=== PATIENT | male | born 1960 | race Asian ===

== ENCOUNTER 2017-08-27 15:21 | Observation (INO) | payer OTHER ==
[2017-08-27 15:45] VITALS: BMI 39.5
--- NOTE | 2017-08-27 15:47 | PDOC ---
Rapid Medical Evaluation Chief Complaint: Blood Sugar Problem Time Seen by Provider: 08/27/17 15:43 Medical Evaluation: Allergies Allergy/AdvReac Type Severity Reaction Status Date / Time No Known Allergies Allergy Verified 08/27/17 15:41 08/27/17 15:43 Reports elevated blood sugars over the past week. Today in the 400's. Pt. also reporting R big toe pain. Admits to feeling shaky. Currently fasting for Ramadan. Exam: Ambulatory, no acute respiratory distress Labs: CBC, CMP, Uric acid, UA, UC Pt. will proceed to main ed for further evaluation.
[2017-08-27 16:51] LABS: URINE APPEARANCE CLEAR; URINE BILIRUBIN NEGATIVE (<2.0 mg/dL); URINE COLOR STRAW; URINE GLUCOSE (UA) 3+ (NEGATIVE); URINE KETONE NEGATIVE (NEGATIVE); URINE LEUK ESTERASE NEGATIVE (NEGATIVE); URINE NITRITE NEGATIVE (NEGATIVE); URINE UROBILINOGEN NEGATIVE mg/dL (0.2-1.0)
[2017-08-27 16:53] LABS: BASO % 0.8 % (0-2.0); EOS % 3.5 % (0-4.5); HEMATOCRIT 33.4 % (35.4-49); HEMOGLOBIN 10.8 GM/dL (11.7-16.9); LYMPH % 24.5 % (8-40); MCH 25.8 pg (25.7-33.7); MCHC 32.5 g/dl (32.0-35.9); MEAN CELL VOLUME 79.3 fl (80-96); MEAN PLT VOLUME 9.5 fl (7.5-11.1); NEUT % 62.2 % (42.8-82.8); PLATELET COUNT 223 K/MM3 (134-434); RBC 4.21 M/mm3 (4.00-5.60); RDW 16.5 % (11.9-15.9); WHITE BLOOD COUNT 6.7 K/mm3 (4.0-10.0)
[2017-08-27 17:06] LABS: URINE PROTEIN 2+ (NEGATIVE)
[2017-08-27 17:15] LABS: INR 0.94 (0.82-1.09); PROTHROMBIN TIME (PATIENT) 10.6 SEC (9.7-13.0)
[2017-08-27 17:24] LABS: ALBUMIN 4.1 g/dl (3.4-5.0); ANION GAP 7 (8-16); BILIRUBIN,TOTAL 0.3 mg/dL (0.2-1.0); BLOOD UREA NITROGEN 33 mg/dL (7-18); CHLORIDE 102 mmol/L (98-107); CO2 28 mmol/L (21-32); CREATININE 1.7 mg/dL (0.7-1.3); SGOT/AST 19 U/L (15-37); SGPT/ALT 24 U/L (12-78); SODIUM 137 mmol/L (136-145); TOT PROT 8.4 g/dl (6.4-8.2)
[2017-08-27 17:32] LABS: ALK PHOS 79 U/L (45-117)
[2017-08-27] MEDS ORDERED: SODIUM CHLORIDE 1,000 ML IV STA (17:37)
[2017-08-27 17:39] LABS: GLUCOSE,RANDOM 306 mg/dL (74-106)
--- NOTE | 2017-08-27 19:10 | PDOC ---
History of Present Illness - General History Source: Patient Exam Limitations: No Limitations - History of Present Illness Initial Comments: 08/27/17 20:01 The patient is a 56 year old male with a significant past medical history of diabetes, hypertension, and hyperlipidemia who presents to the emergency department for evaluation of high blood glucose levels and right toe pain. The patient reports elevated glucose levels above 300 for the passed 3 days. The patient reports he is concerned about elevated blood glucose levels since he has been fasting for Ramadan (15 hours). The patient reports moderate right toe pain with no radiation. The patient is currently taking aspirin (unsure of dosage), levemir, and metformin. Denies history of gout. The patient denies chest pain, shortness of breath, headache, and dizziness. Denies fevers, chills, nausea, vomiting, diarrhea, and constipation. Denies dysuria, frequency, urgency, and hematuria. Allergies: NKDA Medications: As per nursing notes. Past surgical history: Patient denies. Social history: No reported cigarette, alcohol, or drug use. PCP: Dr. Jatinder Arana ([place]) <April Latham - Last Filed: 08/27/17 22:05> <Claribel Wood - Last Filed: 08/27/17 23:08> - General Chief Complaint: Blood Sugar Problem Stated Complaint: BLOOD SUGAR PROBLEM Time Seen by Provider: 08/27/17 15:43 Past History <April Latham - Last Filed: 08/27/17 22:05> - Past Medical History COPD: No Diabetes: Yes HTN: Yes Hypercholesterolemia: Yes - Suicide/Smoking/Psychosocial Hx Smoking History: Never smoked Have you smoked in the past 12 months: No Information on smoking cessation initiated: No Hx Alcohol Use: No Drug/Substance Use Hx: No Substance Use Type: None Hx Substance Use Treatment: No <Claribel Wood - Last Filed: 08/27/17 23:08> - Past Medical History Allergies/Adverse Reactions: Allergies Allergy/AdvReac Type Severity Reaction Status Date / Time No Known Allergies Allergy Verified 08/27/17 15:41 Home Medications: Ambulatory Orders Aspirin [ASA -] 81 mg PO DAILY 12/06/15 Chlorthalidone 25 mg PO BID 12/06/15 Lisinopril [Prinivil -] 40 mg PO DAILY 12/06/15 Metformin HCl [Glucophage] 500 mg PO BID 12/06/15 Metoprolol Succinate [Toprol XL -] 50 mg PO DAILY 12/06/15 Nifedipine ER [Procardia Xl -] 60 mg PO DAILY 08/27/17 Rosuvastatin Calcium [Crestor] 40 mg PO DAILY 08/27/17 Review of Systems - Review of Systems Able to Perform ROS?: Yes Comments:: CONSTITUTIONAL: Absent: fever, chills, diaphoresis, generalized weakness, malaise, loss of appetite HEENT: Absent: rhinorrhea, nasal congestion, throat pain, throat swelling, difficulty swallowing, mouth swelling, ear pain, eye pain, visual Changes CARDIOVASCULAR: Absent: chest pain, syncope, palpitations, irregular heart rate, lightheadedness , peripheral edema RESPIRATORY: Absent: cough, shortness of breath, dyspnea with exertion, orthopnea, wheezing, stridor, hemoptysis GASTROINTESTINAL: Absent: abdominal pain, abdominal distension, nausea, vomiting, diarrhea, constipation, melena, hematochezia GENITOURINARY: Absent: dysuria, frequency, urgency, hesitancy, hematuria, flank pain, genital pain MUSCULOSKELETAL: (+)Right toe pain. Absent: myalgia, arthralgia, joint swelling SKIN: Absent: rash, itching, pallor HEMATOLOGIC/IMMUNOLOGIC: Absent: easy bleeding, easy bruising, lymphadenopathy, frequent infections ENDOCRINE: Absent: unexplained weight gain, unexplained weight loss, heat intolerance, cold intolerance NEUROLOGIC: Absent: headache, focal weakness or paresthesias, dizziness, unsteady gait, seizure, mental status changes, bladder or bowel incontinence PSYCHIATRIC: Absent: anxiety, depression, suicidal or homicidal ideation, hallucinations. <April Latham - Last Filed: 08/27/17 22:05> *Physical Exam - Vital Signs Last Vital Signs Temp Pulse Resp BP Pulse Ox 98.5 F 81 18 117/86 100 08/27/17 15:43 08/27/17 15:43 08/27/17 15:43 08/27/17 15:43 08/27/17 15:43 - Physical Exam Comments: GENERAL: Well developed, well nourished. Awake and alert. No acute distress. HEENT: Normocephalic, atraumatic. PERRLA, EOMI. No conjunctival pallor. Sclera are non- icteric. Moist mucous membranes. Oropharynx is clear. NECK: Supple. Full ROM. No JVD. Carotid pulses 2+ and symmetric, without bruits. No thyromegaly. No lymphadenopathy. CARDIOVASCULAR: Regular rate and rhythm. No murmurs, rubs, or gallops. Distal pulses are 2+ and symmetric. PULMONARY: No evidence of respiratory distress. Lungs clear to auscultation bilaterally. No wheezing, rales or rhonchi. ABDOMINAL: Soft. Non-tender. Non-distended. No rebound or guarding. No organomegaly. Normoactive bowel sounds. MUSCULOSKELETAL Normal range of motion at all joints. No bony deformities or tenderness. No CVA tenderness. EXTREMITIES: (+)Tender and ecchymotic first digit of right foot. No cyanosis. No clubbing. No edema. No calf tenderness. SKIN: Warm and dry. Normal capillary refill. No rashes. No jaundice. NEUROLOGICAL: Alert, awake, appropriate. Cranial nerves 2-12 intact. No deficits to light touch and temperature in face, upper extremities and lower extremities. No motor deficits in the in face, upper extremities and lower extremities. Normoreflexic in the upper and lower extremities. Normal speech. Toes are down- going bilaterally. PSYCHIATRIC: Cooperative. Good eye contact. Appropriate mood and affect. <April Latham - Last Filed: 08/27/17 22:05> - Vital Signs Last Vital Signs Temp Pulse Resp BP Pulse Ox 98.5 F 81 18 117/86 100 08/27/17 15:43 08/27/17 15:43 08/27/17 15:43 08/27/17 15:43 08/27/17 15:43 <Claribel Wood - Last Filed: 08/27/17 23:08> Moderate Sedation - Procedure Monitoring Vital Signs: Vital Signs Temp Pulse Resp BP Pulse Ox 98.5 F 81 18 117/86 100 08/27/17 15:43 08/27/17 15:43 08/27/17 15:43 08/27/17 15:43 08/27/17 15:43 <April Latham - Last Filed: 08/27/17 22:05> - Procedure Monitoring Vital Signs: Vital Signs Temp Pulse Resp BP Pulse Ox 98.5 F 81 18 117/86 100 08/27/17 15:43 08/27/17 15:43 08/27/17 15:43 08/27/17 15:43 08/27/17 15:43 <IsraelClaribel Bailey - Last Filed: 08/27/17 23:08> ED Treatment Course - LABORATORY CBC & Chemistry Diagram: 08/27/17 16:26 08/27/17 16:26 - ADDITIONAL ORDERS Additional order review: Laboratory Results 08/27/17 08/27/17 08/27/17 19:36 16:29 16:26 PT with INR INR Sodium Potassium Chloride Carbon Dioxide Anion Gap BUN Creatinine Creat Clearance w eGFR POC Glucometer [id number] Random Glucose Uric Acid 6.7 Calcium Total Bilirubin AST ALT Alkaline Phosphatase Total Protein Albumin Urine Color Urine Appearance Urine pH Ur Specific [place] Urine Protein Urine Glucose (UA) Urine Ketones Urine Blood Urine Nitrite Urine Bilirubin Urine Urobilinogen Ur Leukocyte Esterase Urine WBC (Auto) Urine RBC (Auto) Acetone, Qual Negative 08/27/17 08/27/17 08/27/17 16:26 16:26 16:26 PT with INR 10.60 INR 0.94 Sodium 137 Potassium 5.0 D Chloride 102 Carbon Dioxide 28 Anion Gap 7 L BUN 33 H D Creatinine 1.7 H D Creat Clearance w eGFR 42.05 POC Glucometer Random Glucose 306 H* D Uric Acid Calcium 9.0 Total Bilirubin 0.3 D AST 19 D ALT 24 D Alkaline Phosphatase 79 D Total Protein 8.4 H D Albumin 4.1 D Urine Color Straw Urine Appearance Clear Urine pH 6.0 Ur Specific [place] 1.016 Urine Protein 2+ H Urine Glucose (UA) 3+ H Urine Ketones Negative Urine Blood 1+ H Urine Nitrite Negative Urine Bilirubin Negative Urine Urobilinogen Negative Ur Leukocyte Esterase Negative Urine WBC (Auto) 1 Urine RBC (Auto) 3 Acetone, Qual 08/27/17 08/27/17 19:36 16:26 RBC 4.21 MCV 79.3 L MCHC 32.5 RDW 16.5 H D MPV 9.5 Neutrophils % 62.2 Lymphocytes % 24.5 Monocytes % 9.0 Eosinophils % 3.5 D Basophils % 0.8 POC Glucometer 369.07803 - Medications Given in the ED: ED Medications Discontinued Medications Generic Name Dose Route Start Last Admin Trade Name Freq PRN Reason Stop Dose Admin Sodium Chloride 1,000 mls @ 1,000 mls/hr 08/27/17 17:37 08/27/17 18:10 Normal Saline - IV 08/27/17 18:36 1,000 mls/hr ASDIR STA Administration Morphine Sulfate 2 mg 08/27/17 19:11 08/27/17 19:28 Morphine Injection - IVPUSH 08/27/17 19:12 Not Given ONCE ONE <NishalonsoApril - Last Filed: 08/27/17 22:05> - LABORATORY CBC & Chemistry Diagram: 08/27/17 16:26 08/27/17 16:26 - ADDITIONAL ORDERS Additional order review: Laboratory Results 08/27/17 08/27/17 08/27/17 16:29 16:26 16:26 PT with INR INR Sodium 137 Potassium 5.0 D Chloride 102 Carbon Dioxide 28 Anion Gap 7 L BUN 33 H D Creatinine 1.7 H D Creat Clearance w eGFR 42.05 Random Glucose 306 H* D Uric Acid 6.7 Calcium 9.0 Total Bilirubin 0.3 D AST 19 D ALT 24 D Alkaline Phosphatase 79 D Total Protein 8.4 H D Albumin 4.1 D Urine Color Urine Appearance Urine pH Ur Specific [place] Urine Protein Urine Glucose (UA) Urine Ketones Urine Blood Urine Nitrite Urine Bilirubin Urine Urobilinogen Ur Leukocyte Esterase Urine WBC (Auto) Urine RBC (Auto) Acetone, Qual Negative 08/27/17 08/27/17 16:26 16:26 PT with INR 10.60 INR 0.94 Sodium Potassium Chloride Carbon Dioxide Anion Gap BUN Creatinine Creat Clearance w eGFR Random Glucose Uric Acid Calcium Total Bilirubin AST ALT Alkaline Phosphatase Total Protein Albumin Urine Color Straw Urine Appearance Clear Urine pH 6.0 Ur Specific [place] 1.016 Urine Protein 2+ H Urine Glucose (UA) 3+ H Urine Ketones Negative Urine Blood 1+ H Urine Nitrite Negative Urine Bilirubin Negative Urine Urobilinogen Negative Ur Leukocyte Esterase Negative Urine WBC (Auto) 1 Urine RBC (Auto) 3 Acetone, Qual 08/27/17 16:26 RBC 4.21 MCV 79.3 L MCHC 32.5 RDW 16.5 H D MPV 9.5 Neutrophils % 62.2 Lymphocytes % 24.5 Monocytes % 9.0 Eosinophils % 3.5 D Basophils % 0.8 - RADIOLOGY Radiology Studies Ordered: Category Date Time Status FOOT-RIGHT [RAD] Stat Radiology 08/27/17 17:41 Taken - Medications Given in the ED: ED Medications Discontinued Medications Generic Name Dose Route Start Last Admin Trade Name Freq PRN Reason Stop Dose Admin Sodium Chloride 1,000 mls @ 1,000 mls/hr 08/27/17 17:37 08/27/17 18:10 Normal Saline - IV 08/27/17 18:36 1,000 mls/hr ASDIR STA Administration <Claribel Wood - Last Filed: 08/27/17 23:08> *DC/Admit/Observation/Transfer - Attestations Scribe Attestion: Documentation prepared by April Latham, acting as medical screener for Claribel Wood MD. <April Latham - Last Filed: 08/27/17 22:05> - Discharge Dispostion Decision to Admit order: Yes <Claribel Wood - Last Filed: 08/27/17 23:08> Diagnosis at time of Disposition: Toe infection, Insulin dependent diabetes mellitus
[2017-08-27] MEDS ORDERED: morphine CARPU-JECT 2 MG/1 ML DISP.SYRIN IVPUSH ONE (19:11)
[2017-08-27] MEDS ORDERED: PIPERACILLIN/TAZOB 3.375 GM 3.375 GM in DEXTROSE 5%-WATER - 50 ML IVPB ONE (20:18)
[2017-08-27] MEDS ORDERED: PIPERACILLIN/TAZOB 3.375 GM 3.375 GM/50 ML BAG IVPB ONE (21:22)
--- NOTE | 2017-08-27 22:54 | PN ---
Teaching Attending Note Name of Resident: Yash Wilson ATTENDING PHYSICIAN STATEMENT I saw and evaluated the patient. I reviewed the resident's note and discussed the case with the resident. I agree with the resident's findings and plan as documented. SUBJECTIVE: The patient is a 56 year old man with chief complaint of right toe pain and uncontrolled blood sugar for 3 days. He has medical history of diabetes, hypertension, and hyperlipidemia. The patient reports elevated glucose levels above 300 for the passed 3 days and that he is concerned about elevated blood glucose levels since he has been fasting for Ramadan. Denies history of gout. OBJECTIVE: Vital Signs Period Temp Pulse Resp BP Sys/Bañuelos Pulse Ox Last 24 Hr 98.5 F 81 18 117/86 100 HEENT: No Jaundice, eye redness or discharge, PERRLA, EOMI. External ears are normal and hearing is grossly intact. No nasal discharge. Neck: Supple, nontender. No palpable adenopathy or thyromegaly. No JVD Chest: Good effort. Clear to auscultation and percussion. Heart: Regular. No S3, rub or murmur Abdomen: Not distended, soft, nontender and no HSM. No rebound or guarding. Normoactive bowel sounds. Ext: Peripheral pulses intact. Tender right big toe with discoloration. No pitting leg edema. Skin: Warm and dry. No petechiae, rash or ecchymosis. Neuro: Alert. Oriented x3. CN 2-12 grossly intact. Sensation grossly intact in all four extremities and DTR are symmetric. Home Medications Medication Instructions Recorded Aspirin [ASA -] 81 mg PO DAILY 12/06/15 Chlorthalidone 25 mg PO BID 12/06/15 Lisinopril [Prinivil -] 40 mg PO DAILY 12/06/15 Metformin HCl [Glucophage] 500 mg PO BID 12/06/15 Metoprolol Succinate [Toprol XL -] 50 mg PO DAILY 12/06/15 Nifedipine ER [Procardia Xl -] 60 mg PO DAILY 08/27/17 Rosuvastatin Calcium [Crestor] 40 mg PO DAILY 08/27/17 Laboratory Results - last 24 hr 08/27/17 08/27/17 08/27/17 16:26 16:26 16:26 WBC 6.7 RBC 4.21 Hgb 10.8 L Hct 33.4 L MCV 79.3 L MCH 25.8 MCHC 32.5 RDW 16.5 H D Plt Count 223 D MPV 9.5 Neutrophils % 62.2 Lymphocytes % 24.5 Monocytes % 9.0 Eosinophils % 3.5 D Basophils % 0.8 Nucleated RBC % 0 PT with INR 10.60 INR 0.94 Sodium Potassium Chloride Carbon Dioxide Anion Gap BUN Creatinine Creat Clearance w eGFR POC Glucometer Random Glucose Uric Acid Calcium Total Bilirubin AST ALT Alkaline Phosphatase Total Protein Albumin Urine Color Straw Urine Appearance Clear Urine pH 6.0 Ur Specific [place] 1.016 Urine Protein 2+ H Urine Glucose (UA) 3+ H Urine Ketones Negative Urine Blood 1+ H Urine Nitrite Negative Urine Bilirubin Negative Urine Urobilinogen Negative Ur Leukocyte Esterase Negative Urine WBC (Auto) 1 Urine RBC (Auto) 3 Acetone, Qual 08/27/17 08/27/17 08/27/17 16:26 16:26 16:29 WBC RBC Hgb Hct MCV MCH MCHC RDW Plt Count MPV Neutrophils % Lymphocytes % Monocytes % Eosinophils % Basophils % Nucleated RBC % PT with INR INR Sodium 137 Potassium 5.0 D Chloride 102 Carbon Dioxide 28 Anion Gap 7 L BUN 33 H D Creatinine 1.7 H D Creat Clearance w eGFR 42.05 POC Glucometer Random Glucose 306 H* D Uric Acid 6.7 Calcium 9.0 Total Bilirubin 0.3 D AST 19 D ALT 24 D Alkaline Phosphatase 79 D Total Protein 8.4 H D Albumin 4.1 D Urine Color Urine Appearance Urine pH Ur Specific [place] Urine Protein Urine Glucose (UA) Urine Ketones Urine Blood Urine Nitrite Urine Bilirubin Urine Urobilinogen Ur Leukocyte Esterase Urine WBC (Auto) Urine RBC (Auto) Acetone, Qual Negative 08/27/17 19:36 WBC RBC Hgb Hct MCV MCH MCHC RDW Plt Count MPV Neutrophils % Lymphocytes % Monocytes % Eosinophils % Basophils % Nucleated RBC % PT with INR INR Sodium Potassium Chloride Carbon Dioxide Anion Gap BUN Creatinine Creat Clearance w eGFR POC Glucometer [id number] Random Glucose Uric Acid Calcium Total Bilirubin AST ALT Alkaline Phosphatase Total Protein Albumin Urine Color Urine Appearance Urine pH Ur Specific [place] Urine Protein Urine Glucose (UA) Urine Ketones Urine Blood Urine Nitrite Urine Bilirubin Urine Urobilinogen Ur Leukocyte Esterase Urine WBC (Auto) Urine RBC (Auto) Acetone, Qual ASSESSMENT AND PLAN: 1. Right bigt toe cellulitis? - Patient is being admitted as an observation case for possible right big toe cellulitis. Because of her hisotry of diabetes, will get an MRI to rule out osteomyelitis/abscess and continue IV Zosyn and PO doxycycline pending further workup. 2. Other comorbid issues including SHAWN, low MCV anemia, microscopic hematuria, and poorly controlled DM are being addressed. Will give IV NS, workup anemia, refer for outpatient colonoscopy, do sliding scale insulin, hold metformin and repeat urinalysis. Toe infection may be contributing to hyperglycemia. 3. DVT prophylaxis - Heparin 5000u sq tid 4. Advance directives - Full code
--- NOTE | 2017-08-27 23:01 | HP ---
CHIEF COMPLAINT: hyperglycemia and R toe pain PCP: in [place] HISTORY OF PRESENT ILLNESS: 56 year old male with a hx of IDDM, HTN, HLD, (CKD?) presents to the hospital for R great toe pain and an elevated blood glucose. He states that for the past several days, his glucose was greater than 300, which surprised him because he is fasting for Ramadan and has been fasting for 18 hours already. Additionally, he reports that his R great toe is swollen and very tender to palpation. He denies history of gout. Denies any trauma to the toe. Denies chest pain, shortness of breath, fevers, chills, nausea, vomiting, diarrhea. Patient has never had a colonoscopy. ER course was notable for: (1) Glu 306, repeat fingerstick 396 (2) Cre 1.7 (3) WBC 6.7 PAST MEDICAL HISTORY: as stated above PAST SURGICAL HISTORY: none Social History: Smoking: none Alcohol: none Drugs: none Allergies No Known Allergies Allergy (Verified 08/27/17 15:41) HOME MEDICATIONS: Home Medications Medication Instructions Recorded Aspirin [ASA -] 81 mg PO DAILY 12/06/15 Chlorthalidone 25 mg PO BID 12/06/15 Lisinopril [Prinivil -] 40 mg PO DAILY 12/06/15 Metformin HCl [Glucophage] 500 mg PO BID 12/06/15 Metoprolol Succinate [Toprol XL -] 50 mg PO DAILY 12/06/15 Nifedipine ER [Procardia Xl -] 60 mg PO DAILY 08/27/17 Rosuvastatin Calcium [Crestor] 40 mg PO DAILY 08/27/17 REVIEW OF SYSTEMS CONSTITUTIONAL: Absent: fever, chills, diaphoresis, generalized weakness, malaise, loss of appetite, weight change HEENT: Absent: rhinorrhea, nasal congestion, throat pain, throat swelling, difficulty swallowing, mouth swelling, ear pain, eye pain, visual changes CARDIOVASCULAR: Absent: chest pain, syncope, palpitations, irregular heart rate, lightheadedness , peripheral edema RESPIRATORY: Absent: cough, shortness of breath, dyspnea with exertion, orthopnea, wheezing, stridor, hemoptysis GASTROINTESTINAL: Absent: abdominal pain, abdominal distension, nausea, vomiting, diarrhea, constipation, melena, hematochezia GENITOURINARY: Absent: dysuria, frequency, urgency, hesitancy, hematuria, flank pain, genital pain MUSCULOSKELETAL: Joint swelling in R great toe Absent: myalgia, arthralgia, joint swelling, back pain, neck pain SKIN: Absent: rash, itching, pallor HEMATOLOGIC/IMMUNOLOGIC: Absent: easy bleeding, easy bruising, lymphadenopathy, frequent infections ENDOCRINE: Absent: unexplained weight gain, unexplained weight loss, heat intolerance, cold intolerance NEUROLOGIC: Absent: headache, focal weakness or paresthesias, dizziness, unsteady gait, seizure, mental status changes, bladder or bowel incontinence PSYCHIATRIC: Absent: anxiety, depression, suicidal or homicidal ideation, hallucinations. PHYSICAL EXAMINATION Vital Signs - 24 hr 08/27/17 15:43 Temperature 98.5 F Pulse Rate 81 Respiratory 18 Rate Blood Pressure 117/86 O2 Sat by Pulse 100 Oximetry (%) GENERAL: A&Ox3, no acute distress EYES: PERRLA, EOMI ENT: Moist mucus membranes NECK: No JVD LUNGS: CTA, no wheezes HEART: RRR, no murmurs ABDOMEN: Obese, Soft, nontender, BS present MUSCULOSKELETAL: No CVA Tenderness EXTREMITIES: 2+ pulses, no edema. R great toe appears ecchymotic proximal to the toenail, tender to palpation, no purulent drainage NEUROLOGICAL: Cranial nerves II-XII intact. Laboratory Results - last 24 hr 08/27/17 08/27/17 08/27/17 16:26 16:26 16:26 WBC 6.7 RBC 4.21 Hgb 10.8 L Hct 33.4 L MCV 79.3 L MCH 25.8 MCHC 32.5 RDW 16.5 H D Plt Count 223 D MPV 9.5 Neutrophils % 62.2 Lymphocytes % 24.5 Monocytes % 9.0 Eosinophils % 3.5 D Basophils % 0.8 Nucleated RBC % 0 PT with INR 10.60 INR 0.94 Sodium Potassium Chloride Carbon Dioxide Anion Gap BUN Creatinine Creat Clearance w eGFR POC Glucometer Random Glucose Uric Acid Calcium Total Bilirubin AST ALT Alkaline Phosphatase Total Protein Albumin Urine Color Straw Urine Appearance Clear Urine pH 6.0 Ur Specific [place] 1.016 Urine Protein 2+ H Urine Glucose (UA) 3+ H Urine Ketones Negative Urine Blood 1+ H Urine Nitrite Negative Urine Bilirubin Negative Urine Urobilinogen Negative Ur Leukocyte Esterase Negative Urine WBC (Auto) 1 Urine RBC (Auto) 3 Acetone, Qual 05/22/18 05/22/18 05/22/18 16:26 16:26 16:29 WBC RBC Hgb Hct MCV MCH MCHC RDW Plt Count MPV Neutrophils % Lymphocytes % Monocytes % Eosinophils % Basophils % Nucleated RBC % PT with INR INR Sodium 137 Potassium 5.0 D Chloride 102 Carbon Dioxide 28 Anion Gap 7 L BUN 33 H D Creatinine 1.7 H D Creat Clearance w eGFR 42.05 POC Glucometer Random Glucose 306 H* D Uric Acid 6.7 Calcium 9.0 Total Bilirubin 0.3 D AST 19 D ALT 24 D Alkaline Phosphatase 79 D Total Protein 8.4 H D Albumin 4.1 D Urine Color Urine Appearance Urine pH Ur Specific [place] Urine Protein Urine Glucose (UA) Urine Ketones Urine Blood Urine Nitrite Urine Bilirubin Urine Urobilinogen Ur Leukocyte Esterase Urine WBC (Auto) Urine RBC (Auto) Acetone, Qual Negative 08/27/17 19:36 WBC RBC Hgb Hct MCV MCH MCHC RDW Plt Count MPV Neutrophils % Lymphocytes % Monocytes % Eosinophils % Basophils % Nucleated RBC % PT with INR INR Sodium Potassium Chloride Carbon Dioxide Anion Gap BUN Creatinine Creat Clearance w eGFR POC Glucometer [phone] Random Glucose Uric Acid Calcium Total Bilirubin AST ALT Alkaline Phosphatase Total Protein Albumin Urine Color Urine Appearance Urine pH Ur Specific [place] Urine Protein Urine Glucose (UA) Urine Ketones Urine Blood Urine Nitrite Urine Bilirubin Urine Urobilinogen Ur Leukocyte Esterase Urine WBC (Auto) Urine RBC (Auto) Acetone, Qual Current Medications ASSESSMENT/PLAN: 56 year old male with a hx of IDDM, HTN, HLD, (CKD?) presents to the hospital for R great toe pain and hyperglycemia #R Toe Pain: possibly paronychia vs acute gouty attack, less likely gout. -IV zosyn given in ED, will continue zosyn and add doxycycline -X ray toe negative -get MRI of toe on R -ID consult Dr. Del Angel appreciated -keep off R toe -hold NSAIDs due to kidney injury #Hyperglycemia: glucose 306 -BGMs ACHS -ISS -start on basal insulin in AM #SHAWN/CKD: unclear if patient has a baseline CKD -urine lytes -fluid hydration -repeat BMP in AM -hold lisinopril, chlorthalidone -do not give NSAIDs or nephrotoxic medications #Chronic Anemia: patients Hgb 10.8 today -iron studies -FOBT -will require colonoscopy as an outpatient #Hypertension: BP is stable currently -continue toprol XL 5025 QD -continue nifedipine 60 QD #Hyperlipidemia -continue rosuvastatin 40 QD -continue aspirin 81 QD #FEN IVF with NS @ 100cc/hr replete lytes as necessary in AM Diabetic diet in AM #Prophylaxis -early ambulation #Disposition -obs med surg Visit type - Emergency Visit Emergency Visit: Yes ED Registration Date: 08/27/17 Care time: The patient presented to the Emergency Department on the above date and was hospitalized for further evaluation of their emergent condition. - New Patient This patient is new to me today: Yes Date on this admission: 08/28/17 - Critical Care Critical Care patient: No Hospitalist Screening - Colonoscopy Questionnaire Colonoscopy Questionnaire: Colonoscopy Questionnaire - Patient: 50 - 75 years old and never had a screening colonoscopy: Unknown History of colon or rectal polyps, or CA: Unknown History of IBD, Crohn's disease or UC: Unknown History of abdominal radiation therapy as a child: Unknown - Relative: 1 with colon or rectal CA, or polyps at age 60 or younger: Unknown Colon or rectal CA diagnosed at age 45 or younger: Unknown Multiple relatives with colon or rectal CA: Unknown - Outcome: Screening Result: Negative Screen
[2017-08-28] MEDS ORDERED: PIPERACILLIN/TAZOB 3.375 GM 3.375 GM in DEXTROSE 5%-WATER - 50 ML IVPB SCH (02:00)
[2017-08-28] MEDS: SODIUM CHLORIDE 1,000 ML IV SCH ×3 (02:34→23:00)
[2017-08-28] MEDS: INSULIN SLIDING SCALE (NOVOLOG) 1 VIAL SQ SCH ×4 (07:05→22:25)
[2017-08-28] MEDS ORDERED: LEVOTHYROXINE NA 25 MCG TABLET (FP) ONE (08:01)
--- NOTE | 2017-08-28 08:16 | CONSULT ---
Consultation: REQUESTING PROVIDER: CONSULT REQUEST: We have been asked to medically evaluate this patient for possible Right great toe infection. HISTORY OF PRESENT ILLNESS: 56M with PMH of DM, htn, hld, presents to hospital with Right great toe pain and persistent hyperglycemia. Pt endorses blood glucose consistently >300 x 3 days, despite fasting for Ramada. Right great toe pain also coincides with initiation of fasting (18 hours daily of no food or water). Pain is improved this morning as compared to at presentation to hospital. Pt denies trauma to toe. Pt denies hx of gout. Pt reports chronic diminished sensation to vijay great toes. Pt denies abdominal pain, nausea, vomiting, headache, chest pain, sob, fever, chills, sick contacts, recent illness. REVIEW OF SYSTEMS: CONSTITUTIONAL: Absent: fever, chills, diaphoresis HEENT: Absent: rhinorrhea, nasal congestion, ear pain, eye pain, visual changes CARDIOVASCULAR: Absent: chest pain, palpitations, irregular heart rate, peripheral edema RESPIRATORY: Absent: cough, shortness of breath, wheezing, stridor, hemoptysis GASTROINTESTINAL: Absent: abdominal pain, abdominal distension, nausea, vomiting, diarrhea, constipation, melena, hematochezia GENITOURINARY: Absent: dysuria, frequency, hematuria MUSCULOSKELETAL: Right great toe pain Absent: myalgia, joint swelling, back pain, neck pain SKIN: Absent: rash, itching, pallor HEMATOLOGIC/IMMUNOLOGIC: Absent: easy bleeding, easy bruising, lymphadenopathy, frequent infections ENDOCRINE: Absent: unexplained weight gain, unexplained weight loss, heat intolerance, cold intolerance NEUROLOGIC: Absent: headache, focal weakness or paresthesias PSYCHIATRIC: Absent: anxiety, depression PHYSICAL EXAMINATION Vital Signs - 24 hr 08/27/17 15:43 Temperature 98.5 F Pulse Rate 81 Respiratory 18 Rate Blood Pressure 117/86 O2 Sat by Pulse 100 Oximetry (%) GENERAL: Awake, alert, and fully oriented, in no acute distress. LUNGS: Breath sounds equal, clear to auscultation bilaterally. No wheezes, and no crackles. No accessory muscle use. HEART: Regular rate and rhythm, normal S1 and S2 without murmur, rub or gallop. ABDOMEN: Soft, nontender, not distended, no guarding. LOWER EXTREMITIES: Right great toe swollen, erythematous, tender to palpation. Onychomycosis to Right great toe only. No skin opening/breakdown. Diminished sensation to vijay great toes. Warm, well-perfused. No calf tenderness. No peripheral edema. PSYCHIATRIC: Cooperative. Good eye contact. Appropriate mood and affect. Laboratory Results - last 24 hr 08/27/17 08/27/17 08/27/17 16:26 16:26 16:26 WBC 6.7 RBC 4.21 Hgb 10.8 L Hct 33.4 L MCV 79.3 L MCH 25.8 MCHC 32.5 RDW 16.5 H D Plt Count 223 D MPV 9.5 Neutrophils % 62.2 Lymphocytes % 24.5 Monocytes % 9.0 Eosinophils % 3.5 D Basophils % 0.8 Nucleated RBC % 0 PT with INR 10.60 INR 0.94 Sodium Potassium Chloride Carbon Dioxide Anion Gap BUN Creatinine Creat Clearance w eGFR POC Glucometer Random Glucose Uric Acid Calcium Total Bilirubin AST ALT Alkaline Phosphatase Total Protein Albumin Urine Color Straw Urine Appearance Clear Urine pH 6.0 Ur Specific [place] 1.016 Urine Protein 2+ H Urine Glucose (UA) 3+ H Urine Ketones Negative Urine Blood 1+ H Urine Nitrite Negative Urine Bilirubin Negative Urine Urobilinogen Negative Ur Leukocyte Esterase Negative Urine WBC (Auto) 1 Urine RBC (Auto) 3 Acetone, Qual 08/27/17 08/27/17 08/27/17 16:26 16:26 16:29 WBC RBC Hgb Hct MCV MCH MCHC RDW Plt Count MPV Neutrophils % Lymphocytes % Monocytes % Eosinophils % Basophils % Nucleated RBC % PT with INR INR Sodium 137 Potassium 5.0 D Chloride 102 Carbon Dioxide 28 Anion Gap 7 L BUN 33 H D Creatinine 1.7 H D Creat Clearance w eGFR 42.05 POC Glucometer Random Glucose 306 H* D Uric Acid 6.7 Calcium 9.0 Total Bilirubin 0.3 D AST 19 D ALT 24 D Alkaline Phosphatase 79 D Total Protein 8.4 H D Albumin 4.1 D Urine Color Urine Appearance Urine pH Ur Specific [place] Urine Protein Urine Glucose (UA) Urine Ketones Urine Blood Urine Nitrite Urine Bilirubin Urine Urobilinogen Ur Leukocyte Esterase Urine WBC (Auto) Urine RBC (Auto) Acetone, Qual Negative 08/27/17 19:36 WBC RBC Hgb Hct MCV MCH MCHC RDW Plt Count MPV Neutrophils % Lymphocytes % Monocytes % Eosinophils % Basophils % Nucleated RBC % PT with INR INR Sodium Potassium Chloride Carbon Dioxide Anion Gap BUN Creatinine Creat Clearance w eGFR POC Glucometer [phone] Random Glucose Uric Acid Calcium Total Bilirubin AST ALT Alkaline Phosphatase Total Protein Albumin Urine Color Urine Appearance Urine pH Ur Specific [place] Urine Protein Urine Glucose (UA) Urine Ketones Urine Blood Urine Nitrite Urine Bilirubin Urine Urobilinogen Ur Leukocyte Esterase Urine WBC (Auto) Urine RBC (Auto) Acetone, Qual Active Medications Generic Name Dose Route Start Last Admin Trade Name Freq PRN Reason Stop Dose Admin Aspirin 81 mg 08/28/17 10:00 Asa - PO DAILY ADELAIDA Sodium Chloride 1,000 mls @ 100 mls/hr 08/27/17 23:00 08/28/17 02:34 Normal Saline - IV 100 mls/hr ASDIR ADELAIDA Administration Piperacillin Sod/Tazobactam 50 mls @ 100 mls/hr 08/28/17 02:00 08/28/17 02:37 Sod 3.375 gm/ Dextrose IVPB Not Given Q8H-IV ADELAIDA Protocol Doxycycline Hyclate 100 mg/ 100 mls @ 100 mls/hr 08/28/17 10:00 Dextrose IVPB BID ADELAIDA Insulin Aspart 0 vial 08/28/17 07:00 Novolog Vial Sliding Scale - SQ ACHS ADELAIDA Protocol Metoprolol Succinate 50 mg 08/28/17 10:00 Toprol Xl - PO DAILY ADELAIDA Nifedipine 60 mg 08/28/17 10:00 Procardia Xl - PO DAILY ADELAIDA Rosuvastatin Calcium 40 mg 08/28/17 22:00 Crestor - PO HS ADELAIDA ASSESSMENT/PLAN: 56M with PMH of DM, htn, hld, presents to hospital with Right great toe pain and persistent hyperglycemia. # Right great toe cellulitis - likely 2/2 OM vs gout - Though pt denies hx of gout and uric acid level wnl, symptoms onset coincide with initiation of fasting (food and water for 18 hrs daily) and pt takes home medication of Chlorthalidone - all predisposing factors for acute gout. Location of mono-articular pain also consistent with gout. - Right foot xray -> no acute fracture. Arthritic changes noted. - MRI ordered to r/o OM - f/u ESR, CRP - pt afebrile, no leukocytosis - Zosyn given in ER - start IV Ceftriaxone # DM / hyperglycemia - BGMs, Novolog SSI, diabetic diet, managed by primary team - f/u urine culture Plan discussed with Dr. Childers. Dispo: We will continue to follow the patient. Thank you for this consultative opportunity. Visit type - Emergency Visit Emergency Visit: Yes ED Registration Date: 08/27/17 Care time: The patient presented to the Emergency Department on the above date and was hospitalized for further evaluation of their emergent condition. - New Patient This patient is new to me today: Yes Date on this admission: 08/28/17 - Critical Care Critical Care patient: No
[2017-08-28] MEDS ORDERED: INSULIN (NOVOLOG) ASPART 100 UNITS/ML 10ML VIAL ONE (08:27)
[2017-08-28 08:44] LABS: HEMATOCRIT 30.7 % (35.4-49); MCHC 32.5 g/dl (32.0-35.9); MEAN PLT VOLUME 9.5 fl (7.5-11.1); PLATELET COUNT 206 K/MM3 (134-434); RBC 3.84 M/mm3 (4.00-5.60); RDW 16.1 % (11.9-15.9); WHITE BLOOD COUNT 5.9 K/mm3 (4.0-10.0)
[2017-08-28 09:08] LABS: CHLORIDE 107 mmol/L (98-107); POTASSIUM 4.5 mmol/L (3.5-5.1); SODIUM 140 mmol/L (136-145)
[2017-08-28 09:19] LABS: ANION GAP 7 (8-16); BLOOD UREA NITROGEN 29 mg/dL (7-18); CALCIUM 8.4 mg/dL (8.5-10.1); CO2 26 mmol/L (21-32); CREATININE 1.5 mg/dL (0.7-1.3); GLUCOSE,RANDOM 285 mg/dL (74-106); MAGNESIUM 2.6 mg/dL (1.8-2.4); PHOSPHOROUS 4.2 mg/dL (2.5-4.9); URIC ACID 6.2 mg/dL (2.6-7.2)
--- NOTE | 2017-08-28 09:44 | PN ---
Teaching Attending Note Name of Resident: Nikki Laureano ATTENDING PHYSICIAN STATEMENT I saw and evaluated the patient. I reviewed the resident's note and discussed the case with the resident. I agree with the resident's findings and plan as documented. SUBJECTIVE: awake and alert noted toe pain since the weekend also sugars are up he is fasting 9no water either) daily now also on a thiazide diuretic no fevers no prior history or gout no trauma +diabetes OBJECTIVE: Vital Signs Period Temp Pulse Resp BP Sys/Bañuelos Pulse Ox Last 24 Hr 97.9 F-98.5 F 65-81 16-18 117-147/75-88 96-100 cor-rrr lungs clear abd soft,protuberant, NT ext right great toe tender to touch, no ulcers minimal swelling CBC, BMP 08/28/17 08:15 08/28/17 08:15 esr 38, crp less then .3 ASSESSMENT AND PLAN: big toe swelling and pain ?gout- risk factors of dehydration (fasting and thiazide diuretic) ?cellulitis doubt osteo rocephin f/u MRI Problem List - Problems (1) Cellulitis Code(s): L03.90 - CELLULITIS, UNSPECIFIED (2) Osteomyelitis Code(s): M86.9 - OSTEOMYELITIS, UNSPECIFIED (3) Insulin dependent diabetes mellitus Code(s): E11.9 - TYPE 2 DIABETES MELLITUS WITHOUT COMPLICATIONS; Z79.4 - [facility] (CURRENT) USE OF INSULIN
[2017-08-28] MEDS ORDERED: CEFTRIAXONE 2 GM in DEXTROSE 5%-WATER 100 ML IVPB SCH (10:00)
[2017-08-28] MEDS ORDERED: DOXYCYCLINE INJECTION 100 MG in DEXTROSE 5%-WATER - 100 ML IVPB SCH (10:00)
[2017-08-28] MEDS: ASPIRIN 81 MG CHEWABLE TABLETS PO SCH (10:04)
[2017-08-28] MEDS: NIFEdipine E.R 60 MG TABLET (UD) PO SCH (10:04)
[2017-08-28] MEDS ORDERED: CEFTRIAXONE 2 GM/100 ML BAG IVPB ONE (10:36)
[2017-08-28] MEDS ORDERED: INSULIN REGULAR HUMAN 100 UNITS/ML *VIAL ONE (10:49)
[2017-08-28] MEDS: INSULIN (LEVEMIR) 100 UNITS/ML UNITS SQ SCH ×2 (11:30→22:24)
--- NOTE | 2017-08-28 12:27 | CONSULT ---
Consult - text type - Consultation Consultation Note: Podiatry Consultation: 56 year old DM M presented to ED For persistent hyperglycemia despite fasting for Ramadan. Does have tenderness/redness to the right great toe of about 2-3 days duration. Denies trauma to the toe, although he did cut his toe nails recently. Denies F/V/N/C/SOB/CP. AFebrile, VSS. PMHx: DM, HTN, HLP Meds: noted ALL: NKMA CAMELIA: R foot: pedal pulses palpable, TG wnl, CFT brisk to all toes. There is fixed erythema to the medial aspect of the hallux. THere is no ecchymosis, no ascending cellulitis, no purulence, no fluctuance, no soft tissue crepitus, no signs of acute infection. There is moderate tenderness on palpation and ROM of hallux. WBC: 5.9 ESR: 38 R foot XR: exostosis medial hallux, joint space narrowing, ?punched out erosion lateral aspect of the distal phalanx base. No fracture noted. No osteomyelitis changes. Imp: 56 year old DM M with cellulitis R great toe vs. injury vs. gouty arthropathy 1. Abx 2. Spur on great toe as well as joint space narrowing could suggest an arthritic process vs. gouty process. Can try colchicine to see if pain improves. Do not believe there is an acute bony issue as patient denies trauma. ?OM, can order advanced imaging, however low index of suspicion given ESR is not significantly elevated and there is no presence of ulcer. 3. Tight glycemic control 4. Thank you for the courtesy of this consultation. Ivan Franklin DPM
[2017-08-28] MEDS ORDERED: INSULIN (LEVEMIR) 100 UNITS/ML UNITS SQ ONE (13:05)
--- NOTE | 2017-08-28 15:22 | PN ---
Physical Exam: SUBJECTIVE: Patient seen and examined at bedside. Pt feels generally well apart from his toe, which is still painful, but improving. Pt is also concerned about his blood glucose numbers. No other complaints. OBJECTIVE: Vital Signs Period Temp Pulse Resp BP Sys/Bañuelos Pulse Ox Last 24 Hr 97.9 F-98.5 F 65-81 16-18 117-147/75-88 96-100 GENERAL: The patient is awake, alert, and fully oriented, in no acute distress. HEAD: Normal with no signs of trauma. EYES: sclera anicteric, conjunctiva clear. No ptosis. ENT: oropharynx clear without exudates, moist mucous membranes. NECK: Trachea midline, full range of motion, supple. LUNGS: Breath sounds equal, clear to auscultation bilaterally, no wheezes, no crackles, no accessory muscle use. HEART: Regular rate and rhythm, S1, S2 without murmur, rub or gallop. ABDOMEN: Soft, nontender, nondistended, normoactive bowel sounds, no guarding, no rebound, no hepatosplenomegaly, no masses. EXTREMITIES: R great to inflamed compared to left. Erythematous, slightly swollen. Tender to palpation on medial aspect. Active and passive ROM preserved. 2+ pulses, warm, well-perfused NEUROLOGICAL: Cranial nerves II through XII grossly intact. Normal speech, gait not observed. PSYCH: Normal mood, normal affect. SKIN: Warm, dry, normal turgor, no rashes or lesions noted Laboratory Results - last 24 hr 08/27/17 08/27/17 08/27/17 16:26 16:26 16:26 WBC 6.7 RBC 4.21 Hgb 10.8 L Hct 33.4 L MCV 79.3 L MCH 25.8 MCHC 32.5 RDW 16.5 H D Plt Count 223 D MPV 9.5 Neutrophils % 62.2 Lymphocytes % 24.5 Monocytes % 9.0 Eosinophils % 3.5 D Basophils % 0.8 Nucleated RBC % 0 ESR PT with INR 10.60 INR 0.94 Sodium Potassium Chloride Carbon Dioxide Anion Gap BUN Creatinine Creat Clearance w eGFR POC Glucometer Random Glucose Hemoglobin A1c % Uric Acid Calcium Phosphorus Magnesium Total Bilirubin AST ALT Alkaline Phosphatase C-Reactive Protein Total Protein Albumin Urine Color Straw Urine Appearance Clear Urine pH 6.0 Ur Specific [place] 1.016 Urine Protein 2+ H Urine Glucose (UA) 3+ H Urine Ketones Negative Urine Blood 1+ H Urine Nitrite Negative Urine Bilirubin Negative Urine Urobilinogen Negative Ur Leukocyte Esterase Negative Urine WBC (Auto) 1 Urine RBC (Auto) 3 Acetone, Qual 08/27/17 08/27/17 08/27/17 16:26 16:26 16:29 WBC RBC Hgb Hct MCV MCH MCHC RDW Plt Count MPV Neutrophils % Lymphocytes % Monocytes % Eosinophils % Basophils % Nucleated RBC % ESR PT with INR INR Sodium 137 Potassium 5.0 D Chloride 102 Carbon Dioxide 28 Anion Gap 7 L BUN 33 H D Creatinine 1.7 H D Creat Clearance w eGFR 42.05 POC Glucometer Random Glucose 306 H* D Hemoglobin A1c % Uric Acid 6.7 Calcium 9.0 Phosphorus Magnesium Total Bilirubin 0.3 D AST 19 D ALT 24 D Alkaline Phosphatase 79 D C-Reactive Protein Total Protein 8.4 H D Albumin 4.1 D Urine Color Urine Appearance Urine pH Ur Specific [place] Urine Protein Urine Glucose (UA) Urine Ketones Urine Blood Urine Nitrite Urine Bilirubin Urine Urobilinogen Ur Leukocyte Esterase Urine WBC (Auto) Urine RBC (Auto) Acetone, Qual Negative 08/27/17 08/28/17 08/28/17 19:36 08:08 08:15 WBC 5.9 RBC 3.84 L Hgb 10.0 L Hct 30.7 L MCV 80.0 MCH 26.0 MCHC 32.5 RDW 16.1 H Plt Count 206 MPV 9.5 Neutrophils % Lymphocytes % Monocytes % Eosinophils % Basophils % Nucleated RBC % ESR PT with INR INR Sodium Potassium Chloride Carbon Dioxide Anion Gap BUN Creatinine Creat Clearance w eGFR POC Glucometer [phone] Random Glucose Hemoglobin A1c % Uric Acid Calcium Phosphorus Magnesium Total Bilirubin AST ALT Alkaline Phosphatase C-Reactive Protein Total Protein Albumin Urine Color Urine Appearance Urine pH Ur Specific [place] Urine Protein Urine Glucose (UA) Urine Ketones Urine Blood Urine Nitrite Urine Bilirubin Urine Urobilinogen Ur Leukocyte Esterase Urine WBC (Auto) Urine RBC (Auto) Acetone, Qual 08/28/17 08/28/17 08/28/17 08:15 08:15 08:15 WBC RBC Hgb Hct MCV MCH MCHC RDW Plt Count MPV Neutrophils % Lymphocytes % Monocytes % Eosinophils % Basophils % Nucleated RBC % ESR 38 H PT with INR INR Sodium 140 Potassium 4.5 Chloride 107 Carbon Dioxide 26 Anion Gap 7 L BUN 29 H Creatinine 1.5 H Creat Clearance w eGFR POC Glucometer Random Glucose 285 H Hemoglobin A1c % 10.5 H D Uric Acid 6.2 Calcium 8.4 L Phosphorus 4.2 D Magnesium 2.6 H D Total Bilirubin AST ALT Alkaline Phosphatase C-Reactive Protein < 0.3 Total Protein Albumin Urine Color Urine Appearance Urine pH Ur Specific [place] Urine Protein Urine Glucose (UA) Urine Ketones Urine Blood Urine Nitrite Urine Bilirubin Urine Urobilinogen Ur Leukocyte Esterase Urine WBC (Auto) Urine RBC (Auto) Acetone, Qual Active Medications Generic Name Dose Route Start Last Admin Trade Name Connorq PRN Reason Stop Dose Admin Aspirin 81 mg 08/28/17 10:00 08/28/17 10:04 Asa - PO 81 mg DAILY ADELAIDA Administration Sodium Chloride 1,000 mls @ 100 mls/hr 08/27/17 23:00 08/28/17 02:34 Normal Saline - IV 100 mls/hr ASDIR ADELAIDA Administration Ceftriaxone Sodium 2 gm/ 100 mls @ 200 mls/hr 08/28/17 10:00 08/28/17 10:00 Dextrose IVPB 200 mls/hr DAILY ADELAIDA Administration Insulin Aspart 0 vial 08/28/17 07:00 08/28/17 10:46 Novolog Vial Sliding Scale - SQ 10 units ACHS ADELAIDA Administration Protocol Insulin Detemir 30 units 08/28/17 11:30 08/28/17 11:30 Levemir Vial SQ 30 units BIDAC ADELAIDA Administration Metoprolol Succinate 50 mg 08/28/17 10:00 08/28/17 10:05 Toprol Xl - PO 50 mg DAILY ADELAIDA Administration Nifedipine 60 mg 08/28/17 10:00 08/28/17 10:04 Procardia Xl - PO 60 mg DAILY ADELAIDA Administration Rosuvastatin Calcium 40 mg 08/28/17 22:00 Crestor - PO HS ADELAIDA ASSESSMENT/PLAN: This is a 56 y/o M with PMH of IDDM, HTN, HLD, (CKD?) who presents to the ED for R great toe pain and hyperglycemia lasting several days. #R Toe Pain -possibly paronychia vs OM vs acute gouty attack (lower suspicion) -IV zosyn given in ED -X ray toe negative -get MRI of toe on R -ID doubtful of osteo. recs Rocephin -Podiatry wit low index of suspicion for OM -hold NSAIDs due to kidney injury #Hyperglycemia -BGMs ACHS -ISS -start on basal insulin in AM #SHAWN/CKD -urine lytes -fluid hydration -repeat BMP in AM -hold lisinopril, chlorthalidone -do not give NSAIDs or nephrotoxic medications #Chronic Anemia -f/u iron studies -FOBT -will require colonoscopy as an outpatient #Hypertension -BP is stable currently -continue toprol XL 5025 QD -continue nifedipine 60 QD #Hyperlipidemia -continue rosuvastatin 40 QD -continue aspirin 81 QD #FEN IVF with NS @ 100cc/hr Hypermagnesemia Diabetic diet in AM #Prophylaxis -Hep SubQ -early ambulation #Dispo -obs med surg Visit type - Emergency Visit Emergency Visit: No - New Patient This patient is new to me today: No - Critical Care Critical Care patient: No - Discharge Referral Referred to [facility] Med [facility] No
--- NOTE | 2017-08-28 17:49 | PN ---
Teaching Attending Note Name of Resident: Chad Nunes ATTENDING PHYSICIAN STATEMENT I saw and evaluated the patient. I reviewed the resident's note and discussed the case with the resident. I agree with the resident's findings and plan as documented with exceptions below. SUBJECTIVE: Patient seen and examined. right great toe pain improved, no fevers chills or new concerns. Reports recent hyperglycemia 300s in the last few weeks. OBJECTIVE: Vital Signs Period Temp Pulse Resp BP Sys/Bañuelos Pulse Ox Last 24 Hr 97.9 F-98 F 65-79 16-18 137-147/75-88 96-98 Intake & Output 08/25/17 08/26/17 08/27/17 08/28/17 23:59 23:59 23:59 23:59 Weight 245 lb General: sitting in bed in no acute distress Extremities: right great toe erythema/swelling/soft ?fluctuation, no tenderness currently, strong DP pulses Home Medication List Medication Instructions Recorded Confirmed Type Aspirin [ASA -] 81 mg PO DAILY 12/06/15 08/27/17 History Chlorthalidone 25 mg PO BID 12/06/15 08/27/17 History Lisinopril [Prinivil -] 40 mg PO DAILY 12/06/15 08/27/17 History Metformin HCl [Glucophage] 500 mg PO BID 12/06/15 08/27/17 History Metoprolol Succinate [Toprol XL -] 50 mg PO DAILY 12/06/15 08/27/17 History Nifedipine ER [Procardia Xl -] 60 mg PO DAILY 08/27/17 08/27/17 History Rosuvastatin Calcium [Crestor] 40 mg PO DAILY 08/27/17 08/27/17 History Insulin (Levemir) [Levemir Vial] 50 units SQ BID 08/28/17 08/28/17 History Active Medications Generic Name Dose Route Start Last Admin Trade Name Freq PRN Reason Stop Dose Admin Aspirin 81 mg 08/28/17 10:00 08/28/17 10:04 Asa - PO 81 mg DAILY ADELAIDA Administration Heparin Sodium (Porcine) 5,000 unit 08/28/17 22:00 Heparin - SQ BID ADELAIDA Sodium Chloride 1,000 mls @ 100 mls/hr 08/27/17 23:00 08/28/17 02:34 Normal Saline - IV 100 mls/hr ASDIR ADELAIDA Administration Ceftriaxone Sodium 2 gm/ 100 mls @ 200 mls/hr 05/23/18 10:00 08/28/17 10:00 Dextrose IVPB 200 mls/hr DAILY ADELAIDA Administration Insulin Aspart 0 vial 08/28/17 07:00 08/28/17 16:41 Novolog Vial Sliding Scale - SQ 10 units ACHS ADELAIDA Administration Protocol Insulin Detemir 30 units 08/28/17 11:30 08/28/17 11:30 Levemir Vial SQ 30 units BIDAC ADELAIDA Administration Metoprolol Succinate 50 mg 08/28/17 10:00 08/28/17 10:05 Toprol Xl - PO 50 mg DAILY ADELAIDA Administration Nifedipine 60 mg 08/28/17 10:00 08/28/17 10:04 Procardia Xl - PO 60 mg DAILY [facility] Administration Rosuvastatin Calcium 40 mg 08/28/17 22:00 Crestor - PO HS [facility] Laboratory Results - last 24 hr 08/27/17 08/27/17 08/28/17 16:29 19:36 08:08 WBC RBC Hgb Hct MCV MCH MCHC RDW Plt Count MPV ESR Sodium Potassium Chloride Carbon Dioxide Anion Gap BUN Creatinine POC Glucometer 369.13343 317.16782 Random Glucose Hemoglobin A1c % Uric Acid Calcium Phosphorus Magnesium C-Reactive Protein Acetone, Qual Negative 08/28/17 08/28/17 08/28/17 08:15 08:15 08:15 WBC 5.9 RBC 3.84 L Hgb 10.0 L Hct 30.7 L MCV 80.0 MCH 26.0 MCHC 32.5 RDW 16.1 H Plt Count 206 MPV 9.5 ESR 38 H Sodium 140 Potassium 4.5 Chloride 107 Carbon Dioxide 26 Anion Gap 7 L BUN 29 H Creatinine 1.5 H POC Glucometer Random Glucose 285 H Hemoglobin A1c % Uric Acid 6.2 Calcium 8.4 L Phosphorus 4.2 D Magnesium 2.6 H D C-Reactive Protein < 0.3 Acetone, Qual 08/28/17 08/28/17 08:15 16:39 WBC RBC Hgb Hct MCV MCH MCHC RDW Plt Count MPV ESR Sodium Potassium Chloride Carbon Dioxide Anion Gap BUN Creatinine POC Glucometer 390 Random Glucose Hemoglobin A1c % 10.5 H D Uric Acid Calcium Phosphorus Magnesium C-Reactive Protein Acetone, Qual ASSESSMENT AND PLAN: 56 yom with PMHx of IDDM, HTN, HLD, CKD stage II (baseline Cr around 1/6) comes with 3 days of right great toe pain/swelling/redness sudden onset and hyperglycemia -right great toe pain/swelling/redness, r/o Diabetic foot infection,cellulitis more likely than OM vs gout -Hyperglycemia, likely from above -HTN -HLD -Mild SHAWN on CKD stage II Plan: ESR noted, CRP neg. Podiatry input noted. ID input noted. Ceftriaxone, follow up MRI foot. recently tried to cut his nail on right great toe, Skin/soft tissue infection higher on suspicion than Osteomyleitis. ?gout. IVF, hold CHRISTOPHER/Chlorthalidone Resume levemir at 30 units BID, ISS, diabetic diet. Continue metoprolol/nifedipine. heparin for DVTPPx dispo pending clinical improvement. in 24 hours if MRI non-concerning and improved. Plan discussed with patient in detail, all questions answered.
[2017-08-28] MEDS ORDERED: ROSUVASTATIN CA 40 MG TABLET PO SCH (22:00)
[2017-08-28] MEDS ORDERED: ROSUVASTATIN CA 20 MG TABLET (FP) PO SCH (22:00)
[2017-08-28] MEDS ORDERED: PT OWN MED DRAWER 7, Y5N ONE (22:20)
[2017-08-28] MEDS: HEPARIN NA (PORCINE) 5,000 UNITS/ML 1ML VIAL SQ SCH (22:23)
[2017-08-29] MEDS ORDERED: INSULIN (NOVOLOG) ASPART 100 UNITS/ML 10ML VIAL ONE ×2 (06:53→07:36)
[2017-08-29] MEDS ORDERED: PT OWN MED DRAWER 7, Y5N ONE (06:53)
[2017-08-29 07:14] LABS: BASO % 0.9 % (0-2.0); EOS % 6.1 % (0-4.5); HEMATOCRIT 29.3 % (35.4-49); HEMOGLOBIN 9.8 GM/dL (11.7-16.9); LYMPH % 36.3 % (8-40); MCH 26.7 pg (25.7-33.7); MCHC 33.6 g/dl (32.0-35.9); MEAN CELL VOLUME 79.4 fl (80-96); MEAN PLT VOLUME 9.1 fl (7.5-11.1); MONO % 11.4 % (3.8-10.2); NEUT % 45.3 % (42.8-82.8); PLATELET COUNT 166 K/MM3 (134-434); RBC 3.69 M/mm3 (4.00-5.60); RDW 16.2 % (11.9-15.9); WHITE BLOOD COUNT 5.9 K/mm3 (4.0-10.0)
[2017-08-29] MEDS ORDERED: CEFTRIAXONE 2 GM in SODIUM CHLORIDE 100 ML IVPB SCH (07:25)
[2017-08-29 07:37] LABS: ANION GAP 7 (8-16); BLOOD UREA NITROGEN 23 mg/dL (7-18); CALCIUM 8.3 mg/dL (8.5-10.1); CHLORIDE 109 mmol/L (98-107); CO2 26 mmol/L (21-32); CREATININE 1.4 mg/dL (0.7-1.3); GLUCOSE,RANDOM 235 mg/dL (74-106); POTASSIUM 4.2 mmol/L (3.5-5.1); SODIUM 142 mmol/L (136-145)
[2017-08-29] MEDS: INSULIN (LEVEMIR) 100 UNITS/ML UNITS SQ SCH ×3 (07:38→16:48)
[2017-08-29] MEDS: INSULIN SLIDING SCALE (NOVOLOG) 1 VIAL SQ SCH ×3 (07:38→17:12)
--- NOTE | 2017-08-29 07:55 | PN ---
Teaching Attending Note Name of Resident: Chad Nunes ATTENDING PHYSICIAN STATEMENT I saw and evaluated the patient. I reviewed the resident's note and discussed the case with the resident. I agree with the resident's findings and plan as documented with exceptions below. SUBJECTIVE: Patient seen and examined. right toe pain and swelling improved. OBJECTIVE: Vital Signs Period Temp Pulse Resp BP Sys/Bañuelos Pulse Ox Last 24 Hr 97.3 F-98.3 F 63-79 18-20 139-156/70-88 97-99 Intake & Output 08/26/17 08/27/17 08/28/17 08/29/17 23:59 23:59 23:59 23:59 Intake Total 540 950 Balance 540 950 Weight 245 lb General: sitting in chair no acute distress Extremities: right great toe swelling/erythema improved. Mild tenderness over proximal phalanx area, positive pulses. Home Medication List Medication Instructions Recorded Confirmed Type Aspirin [ASA -] 81 mg PO DAILY 12/06/15 08/27/17 History Chlorthalidone 25 mg PO BID 12/06/15 08/27/17 History Lisinopril [Prinivil -] 40 mg PO DAILY 12/06/15 08/27/17 History Metformin HCl [Glucophage] 500 mg PO BID 12/06/15 08/27/17 History Metoprolol Succinate [Toprol XL -] 50 mg PO DAILY 12/06/15 08/27/17 History Nifedipine ER [Procardia Xl -] 60 mg PO DAILY 08/27/17 08/27/17 History Rosuvastatin Calcium [Crestor] 40 mg PO DAILY 08/27/17 08/27/17 History Insulin (Levemir) [Levemir Vial] 50 units SQ BID 08/28/17 08/28/17 History Active Medications Generic Name Dose Route Start Last Admin Trade Name Freq PRN Reason Stop Dose Admin Aspirin 81 mg 08/28/17 10:00 08/28/17 10:04 Asa - PO 81 mg DAILY ADELAIDA Administration Heparin Sodium (Porcine) 5,000 unit 08/28/17 22:00 08/28/17 22:23 Heparin - SQ 5,000 unit BID ADELAIDA Administration Sodium Chloride 1,000 mls @ 100 mls/hr 08/27/17 23:00 08/28/17 23:00 Normal Saline - IV 100 mls/hr ASDIR ADELAIDA Administration Ceftriaxone Sodium 2 gm/ 100 mls @ 200 mls/hr 08/29/17 07:25 Sodium Chloride IVPB 09/03/17 10:29 DAILY [facility] Insulin Aspart 0 vial 08/28/17 07:00 08/29/17 07:38 Novolog Vial Sliding Scale - SQ 4 units ACHS ADELAIDA Administration Protocol Insulin Detemir 40 units 08/29/17 07:30 Levemir Vial SQ BIDAC ADELAIDA Metoprolol Succinate 50 mg 08/28/17 10:00 08/28/17 10:05 Toprol Xl - PO 50 mg DAILY ADELAIDA Administration Nifedipine 60 mg 08/28/17 10:00 08/28/17 10:04 Procardia Xl - PO 60 mg DAILY ADELAIDA Administration Rosuvastatin Calcium 40 mg 08/28/17 22:00 08/28/17 23:00 Crestor - PO 40 mg HS ADELAIDA Administration Laboratory Results - last 24 hr 08/28/17 08/28/17 08/28/17 08:08 08:15 08:15 WBC 5.9 RBC 3.84 L Hgb 10.0 L Hct 30.7 L MCV 80.0 MCH 26.0 MCHC 32.5 RDW 16.1 H Plt Count 206 MPV 9.5 ESR Sodium 140 Potassium 4.5 Chloride 107 Carbon Dioxide 26 Anion Gap 7 L BUN 29 H Creatinine 1.5 H POC Glucometer [phone] Random Glucose 285 H Hemoglobin A1c % Uric Acid 6.2 Calcium 8.4 L Phosphorus 4.2 D Magnesium 2.6 H D C-Reactive Protein < 0.3 08/28/17 08/28/17 08/28/17 08:15 08:15 16:39 WBC RBC Hgb Hct MCV MCH MCHC RDW Plt Count MPV ESR 38 H Sodium Potassium Chloride Carbon Dioxide Anion Gap BUN Creatinine POC Glucometer 390 Random Glucose Hemoglobin A1c % 10.5 H D Uric Acid Calcium Phosphorus Magnesium C-Reactive Protein 08/28/17 08/29/17 08/29/17 21:47 06:23 06:45 WBC RBC Hgb Hct MCV MCH MCHC RDW Plt Count MPV ESR Sodium 142 Potassium 4.2 Chloride 109 H Carbon Dioxide 26 Anion Gap 7 L BUN 23 H D Creatinine 1.4 H POC Glucometer 296 247 Random Glucose 235 H Hemoglobin A1c % Uric Acid Calcium 8.3 L Phosphorus Magnesium C-Reactive Protein ASSESSMENT AND PLAN: 56 yom with PMHx of IDDM, HTN, HLD, CKD stage II (baseline Cr around 6) comes with 3 days of right great toe pain/swelling/redness sudden onset and hyperglycemia -Right great toe cellullitis -RIght great toe proximal phalanx subacute fracture. -Hyperglycemia, likely from above -IDDM, poorly controlled. -HTN -HLD -Mild SHAWN on CKD stage II, likely from hypovolumia from fasting and hyperglycemia Plan: POdiatry input noted. Surgical shoe and protected weight bearing. PT eval. Discuss with ID, ?transition to augmentin. Ceftriaxone day 3. DM poorly controlled. Increase levemir to 40 units BID, patient recently started on premeal coverage, start once confirmed. Cr better than baseline. Hold lisinopril/Chlorthalidone. Educated patient to discuss with PCP about holding lisinopril/chlorthalidone when resume fasting. BMP early next week Continue metoprolol/nifedipine. heparin for DVTPPx dispo plan for d/c later today pending PT eval and ID input for po antibiotics. Plan discussed with patient in detail, all questions answered.
--- NOTE | 2017-08-29 07:58 | PN ---
Physical Exam: SUBJECTIVE: Patient seen and examined at bedside. Pt continues to feel well. Toe feels a little better. No other complaints. OBJECTIVE: Vital Signs Period Temp Pulse Resp BP Sys/Bañuelos Pulse Ox Last 24 Hr 97.3 F-98.3 F 63-79 18-20 139-156/70-88 97-99 GENERAL: The patient is awake, alert, and fully oriented, in no acute distress. HEAD: Normal with no signs of trauma. EYES: sclera anicteric, conjunctiva clear. No ptosis. ENT: oropharynx clear without exudates, moist mucous membranes. NECK: Trachea midline, full range of motion, supple. LUNGS: Breath sounds equal, clear to auscultation bilaterally, no wheezes, no crackles, no accessory muscle use. HEART: Regular rate and rhythm, S1, S2 without murmur, rub or gallop. ABDOMEN: Soft, nontender, nondistended, normoactive bowel sounds, no guarding, no rebound, no hepatosplenomegaly, no masses. EXTREMITIES: R great to inflamed compared to left. Erythematous, slightly swollen. Tender to palpation on medial aspect. Active and passive ROM preserved. 2+ pulses, warm, well-perfused NEUROLOGICAL: Cranial nerves II through XII grossly intact. Normal speech, gait not observed. PSYCH: Normal mood, normal affect. SKIN: Warm, dry, normal turgor, no rashes or lesions noted Laboratory Results - last 24 hr 08/28/17 08/28/17 08/28/17 08:08 08:15 08:15 WBC 5.9 RBC 3.84 L Hgb 10.0 L Hct 30.7 L MCV 80.0 MCH 26.0 MCHC 32.5 RDW 16.1 H Plt Count 206 MPV 9.5 Neutrophils % Lymphocytes % Monocytes % Eosinophils % Basophils % Nucleated RBC % ESR Sodium 140 Potassium 4.5 Chloride 107 Carbon Dioxide 26 Anion Gap 7 L BUN 29 H Creatinine 1.5 H POC Glucometer [phone] Random Glucose 285 H Hemoglobin A1c % Uric Acid 6.2 Calcium 8.4 L Phosphorus 4.2 D Magnesium 2.6 H D C-Reactive Protein < 0.3 08/28/17 08/28/17 08/28/17 08:15 08:15 16:39 WBC RBC Hgb Hct MCV MCH MCHC RDW Plt Count MPV Neutrophils % Lymphocytes % Monocytes % Eosinophils % Basophils % Nucleated RBC % ESR 38 H Sodium Potassium Chloride Carbon Dioxide Anion Gap BUN Creatinine POC Glucometer 390 Random Glucose Hemoglobin A1c % 10.5 H D Uric Acid Calcium Phosphorus Magnesium C-Reactive Protein 08/28/17 08/29/17 08/29/17 21:47 06:23 06:45 WBC 5.9 RBC 3.69 L Hgb 9.8 L Hct 29.3 L MCV 79.4 L MCH 26.7 MCHC 33.6 RDW 16.2 H Plt Count 166 MPV 9.1 Neutrophils % 45.3 D Lymphocytes % 36.3 D Monocytes % 11.4 H Eosinophils % 6.1 H Basophils % 0.9 Nucleated RBC % 0 ESR Sodium Potassium Chloride Carbon Dioxide Anion Gap BUN Creatinine POC Glucometer 296 247 Random Glucose Hemoglobin A1c % Uric Acid Calcium Phosphorus Magnesium C-Reactive Protein 08/29/17 06:45 WBC RBC Hgb Hct MCV MCH MCHC RDW Plt Count MPV Neutrophils % Lymphocytes % Monocytes % Eosinophils % Basophils % Nucleated RBC % ESR Sodium 142 Potassium 4.2 Chloride 109 H Carbon Dioxide 26 Anion Gap 7 L BUN 23 H D Creatinine 1.4 H POC Glucometer Random Glucose 235 H Hemoglobin A1c % Uric Acid Calcium 8.3 L Phosphorus Magnesium C-Reactive Protein Active Medications Generic Name Dose Route Start Last Admin Trade Name Freq PRN Reason Stop Dose Admin Aspirin 81 mg 08/28/17 10:00 08/28/17 10:04 Asa - PO 81 mg DAILY ADELAIDA Administration Heparin Sodium (Porcine) 5,000 unit 08/28/17 22:00 08/28/17 22:23 Heparin - SQ 5,000 unit BID ADELAIDA Administration Sodium Chloride 1,000 mls @ 100 mls/hr 08/27/17 23:00 08/28/17 23:00 Normal Saline - IV 100 mls/hr ASDIR ADELAIDA Administration Ceftriaxone Sodium 2 gm/ 100 mls @ 200 mls/hr 08/29/17 07:25 Sodium Chloride IVPB 09/03/17 10:29 DAILY ADELAIDA Insulin Aspart 0 vial 08/28/17 07:00 08/29/17 07:38 Novolog Vial Sliding Scale - SQ 4 units ACHS ADELAIDA Administration Protocol Insulin Detemir 40 units 08/29/17 07:30 Levemir Vial SQ BIDAC [facility] Metoprolol Succinate 50 mg 08/28/17 10:00 08/28/17 10:05 Toprol Xl - PO 50 mg DAILY ADELAIDA Administration Nifedipine 60 mg 08/28/17 10:00 08/28/17 10:04 Procardia Xl - PO 60 mg DAILY ADELAIDA Administration Rosuvastatin Calcium 40 mg 08/28/17 22:00 08/28/17 23:00 Crestor - PO 40 mg HS ADELAIDA Administration ASSESSMENT/PLAN: This is a 56 y/o M with PMH of IDDM, HTN, HLD, (CKD?) who presents to the ED for R great toe pain and hyperglycemia lasting several days. #R Toe Pain: Improving -possibly paronychia vs OM vs acute gouty attack (lower suspicion) -IV zosyn given in ED -X ray toe negative -MRI results pending -ID doubtful of osteo. recs Rocephin -Podiatry wit low index of suspicion for OM -hold NSAIDs due to kidney injury #Hyperglycemia -BGMs ACHS -ISS -start on basal insulin in AM -One-time Levemir 10u #SHAWN/CKD -urine lytes -fluid hydration -repeat BMP in AM -hold lisinopril, chlorthalidone -do not give NSAIDs or nephrotoxic medications #Chronic Anemia -f/u iron studies -FOBT -will require colonoscopy as an outpatient #Hypertension -BP is stable currently -continue toprol XL 5025 QD -continue nifedipine 60 QD #Hyperlipidemia -continue rosuvastatin 40 QD -continue aspirin 81 QD #FEN IVF with NS @ 100cc/hr Hypermagnesemia Diabetic diet in AM #Prophylaxis -Hep SubQ -early ambulation #Dispo -obs med surg Chad Nunes MD PGY-1 IM
[2017-08-29 08:11] LABS: SERUM IRON SATURATION 12 % (15-55); TOTAL IRON BINDING CAPACITY 367 ug/dL (250-450); UIBC 324 ug/dL (111-343)
[2017-08-29 08:45] VITALS: TEMP 98
[2017-08-29] MEDS ORDERED: INSULIN (LEVEMIR) 100 UNITS/ML UNITS SQ ONE (09:00)
[2017-08-29] MEDS ORDERED: SODIUM CHLORIDE 100 ML IVPB ONE (09:01)
[2017-08-29] MEDS: ASPIRIN 81 MG CHEWABLE TABLETS PO SCH (09:02)
[2017-08-29] MEDS: NIFEdipine E.R 60 MG TABLET (UD) PO SCH (09:02)
[2017-08-29] MEDS: HEPARIN NA (PORCINE) 5,000 UNITS/ML 1ML VIAL SQ SCH (09:02)
--- NOTE | 2017-08-29 09:59 | PN ---
Progress Note (short form) - Note Progress Note: Podiatry F/U; Seen/evaluated at bedside, feeling better. Denies F/V/N/C/SOB/CP. AFebrile, VSS. CAMELIA: R foot: pedal pulses palpable, TG wnl, CFT brisk to all toes. There is decreasing erythema to the medial aspect of the hallux, no fluctuance, no purulence, no ascending cellulitis, no signs of infection. Decreasing tenderness to palpation. R Foot MRI: subacute fracture proximal phalanx Imp: 56 year old DM M with R hallux subacute occult fracture 1. Pain control 2. Abx per ID 3. MRI results reviewed with patient. Rx surgical shoe and protected weightbearing. Should heal 4-6 weeks with protected weightbearing. 4. Needs tight glycemic control. 5. NO further intervention. Ivan Franklin DPM
--- NOTE | 2017-08-29 13:14 | DS ---
Physical Exam: SUBJECTIVE: Patient seen and examined at bedside. Pt continues to feel well. Toe feels a little better. No other complaints. OBJECTIVE: Vital Signs Period Temp Pulse Resp BP Sys/Bañuelos Pulse Ox Last 24 Hr 97.3 F-98.3 F 63-76 18-20 139-156/70-81 98-99 PHYSICAL EXAM GENERAL: The patient is awake, alert, and fully oriented, in no acute distress. HEAD: Normal with no signs of trauma. EYES: sclera anicteric, conjunctiva clear. No ptosis. ENT: oropharynx clear without exudates, moist mucous membranes. NECK: Trachea midline, full range of motion, supple. LUNGS: Breath sounds equal, clear to auscultation bilaterally, no wheezes, no crackles, no accessory muscle use. HEART: Regular rate and rhythm, S1, S2 without murmur, rub or gallop. ABDOMEN: Soft, nontender, nondistended, normoactive bowel sounds, no guarding, no rebound, no hepatosplenomegaly, no masses. EXTREMITIES: R great to inflamed compared to left. Erythematous, slightly swollen. Painless active and passive ROM preserved. 2+ pulses, warm, well- perfused NEUROLOGICAL: Cranial nerves II through XII grossly intact. Normal speech, antalgic gait. PSYCH: Normal mood, normal affect. SKIN: Warm, dry, normal turgor, no rashes or lesions noted LABS Laboratory Results - last 24 hr 08/28/17 08/28/17 08/28/17 08:15 08:15 16:39 WBC RBC Hgb Hct MCV MCH MCHC RDW Plt Count MPV Neutrophils % Lymphocytes % Monocytes % Eosinophils % Basophils % Nucleated RBC % Sodium Potassium Chloride Carbon Dioxide Anion Gap BUN Creatinine POC Glucometer 390 Random Glucose Hemoglobin A1c % 10.5 H D Calcium Iron 43 TIBC 367 Iron Saturation 12 L 08/28/17 08/29/17 08/29/17 21:47 06:23 06:45 WBC 5.9 RBC 3.69 L Hgb 9.8 L Hct 29.3 L MCV 79.4 L MCH 26.7 MCHC 33.6 RDW 16.2 H Plt Count 166 MPV 9.1 Neutrophils % 45.3 D Lymphocytes % 36.3 D Monocytes % 11.4 H Eosinophils % 6.1 H Basophils % 0.9 Nucleated RBC % 0 Sodium Potassium Chloride Carbon Dioxide Anion Gap BUN Creatinine POC Glucometer 296 247 Random Glucose Hemoglobin A1c % Calcium Iron TIBC Iron Saturation 08/29/17 08/29/17 06:45 11:05 WBC RBC Hgb Hct MCV MCH MCHC RDW Plt Count MPV Neutrophils % Lymphocytes % Monocytes % Eosinophils % Basophils % Nucleated RBC % Sodium 142 Potassium 4.2 Chloride 109 H Carbon Dioxide 26 Anion Gap 7 L BUN 23 H D Creatinine 1.4 H POC Glucometer 379 Random Glucose 235 H Hemoglobin A1c % Calcium 8.3 L Iron TIBC Iron Saturation HOSPITAL COURSE: Date of Admission:08/27/17 Date of Discharge: 08/29/17 This is a 56 y/o M with PMH of IDDM, HTN, HLD, (CKD?) who presents to the ED for R great toe pain and hyperglycemia lasting several days. Pt's R Toe Pain improved significantly during his stay. He was given zosyn in the ED. He had an Xray and MRI to r/o osteomyelitis and gout. ID was consulted and were doubtful of osteo. They suggested Rocephin. Podiatry agreed that OM was unlikely. Pt improved. Was seen by PT. Pt had hyperglycemia in hospital. It was treated with ISS and basal insulin. Pt had SHAWN on CKD. He was hydrated and he resolved. His lisinopril and chlorthalidone were held along with NSAIDs. Pt had Chronic Anemia. Iron studies were unremarkable. Pt was advised that he will require colonoscopy as an outpatient Pt's hypertension was stable during his admission. He was treated with toprol XL 5025 QD and nifedipine 60 QD. Pt's hyperlipidemia was treated with home rosuvastatin 40 QD aspirin 81 QD. Minutes to complete discharge: 30 Discharge Summary Reason For Visit: INSULIN DEPENDENT DIABETES MELLITUS Current Active Problems Cellulitis (Acute) Insulin dependent diabetes mellitus (Acute) Osteomyelitis (Acute) Toe infection (Acute) Condition: Improved - Instructions Diet, Activity, Other Instructions: Follow up with your call center assistant tomorrow or make an appointment with Dr Hyman or Dr Anderson Take Your Diabetes medicines and insulin as you were taking before. Eat diabetic diet and health diet. Low cholesterol, low salt low carb Drink plenty of water. Follow up with your primary care doctor and get your BMP check after 1 week as creatinine is 1.4 Monitor Blood sugar and make a log of it. Present a log to your call center assistant so that they can adjust your medicines. Take all the medicines as prescribed. You have been started on antibiotic for cellulites on great toe, take it as prescribed. Augmentin 875mg twice daily for 10 days. Prescription has been sent to your pharmacy [facility] pharmacy [id number] You were found to have a fracture of great toe for which you have been provided with surgical shoe. Wear shoe for 4-6 week. Also recommend protected weight bearing on your right toe till fully healed, atleast 4-6 weeks. Avoid running untill you get clearance from podiatry or orthopedic. Follow up with Dr Franklin ( podiatry) or Dr Cowan ( orthopedics) for toe fracture. Take your blood pressure pills as you were taking before. If swelling in toe increases, redness increases, develop fever and chills contact doctor or go to hospital. Maintain good hygiene of your toes, take precaution while cutting nails and follow batch tester Dr Franklin. Discuss with your doctor about holding your BP medications lisinopril and chlorthalidone in case you resume fasting, and advise to have your kidney function (BMP) checked early next week beforehand. Referrals: Destin Franklin MD [Staff Physician] - 1 Week Connor Cowan MD [Staff Physician] - 1 Week Disposition: HOME - Home Medications Comprehensive Discharge Medication List: Ambulatory Orders Aspirin [ASA -] 81 mg PO DAILY 12/06/15 Chlorthalidone 25 mg PO BID 12/06/15 Lisinopril [Prinivil -] 40 mg PO DAILY 12/06/15 Metformin HCl [Glucophage] 500 mg PO BID 12/06/15 Metoprolol Succinate [Toprol XL -] 50 mg PO DAILY 12/06/15 Nifedipine ER [Procardia XL -] 60 mg PO DAILY 08/27/17 Rosuvastatin Calcium [Crestor] 40 mg PO DAILY 08/27/17 Insulin (Levemir) [Levemir Vial] 50 units SQ BID 08/28/17 Amoxicillin/Potassium Clav [Augmentin 875-125 Tablet] 1 each PO BID 10 Days #20 tablet 08/29/17 Insulin (Novolog) [Novolog -] 10 units SQ AC 08/29/17 This patient is new to me today: No Emergency Visit: No Critical Care patient: No - Discharge Referral Referred to [facility] Med [facility] No
--- NOTE | 2017-08-29 13:15 | PN ---
Progress Note (short form) - Note Progress Note: ID Ceftriaxone day 3 Afebrile Selected Entries 08/29/17 07:00 Temperature 98.0 F Pulse Rate 63 Respiratory 18 Rate Blood Pressure 140/70 Toe some swelling along with foot Microbiology 08/27/17 16:26 Urine - Urine Clean Catch Urine Culture - Final NO GROWTH OBTAINED Laboratory Tests 08/29/17 08/29/17 06:45 06:45 WBC 5.9 Hgb 9.8 L Plt Count 166 BUN 23 H D Creatinine 1.4 H Assessment SSTI ? toe MRI neg Plan As suggested can switch to po Augmentin for 5 days Mer GRANADOS
[2017-08-29 14:05] VITALS: BP 140/74; PULSE 70
== END 2017-08-29 17:11 | disposition home or self-care (01) ==
LOC: JER 15:21 → JERBED 23:08 → J5S 08-28 16:27
PROVIDERS: ADMIT Internal Medicine; ATTEND Hospitalist
PROC: 3E03329 Introduction of Other Anti-infective into Peripheral Vein, Percutaneous Approach (ICD-10-PCS; principal; 2017-08-27)
PROC: 3E033GC Introduction of Other Therapeutic Substance into Peripheral Vein, Percutaneous Approach (ICD-10-PCS; 2017-08-27)
PROC: 3E0337Z Introduction of Electrolytic and Water Balance Substance into Peripheral Vein, Percutaneous Approach (ICD-10-PCS; 2017-08-27)
PROC: 3E013VG Introduction of Insulin into Subcutaneous Tissue, Percutaneous Approach (ICD-10-PCS; 2017-08-27)
PROC: 3E013GC Introduction of Other Therapeutic Substance into Subcutaneous Tissue, Percutaneous Approach (ICD-10-PCS; 2017-08-27)
DX: M79.674 Pain in right toe(s) (principal); L08.9 Local infection of the skin and subcutaneous tissue, unspecified; E11.22 Type 2 diabetes mellitus with diabetic chronic kidney disease; I12.9 Hypertensive chronic kidney disease with stage 1 through stage 4 chronic kidney disease, or unspecified chronic kidney disease; N18.2 Chronic kidney disease, stage 2 (mild); N17.9 Acute kidney failure, unspecified; E78.5 Hyperlipidemia, unspecified; D64.89 Other specified anemias; Z79.82 Long term (current) use of aspirin; Z79.84 Long term (current) use of oral hypoglycemic drugs; S92.414A Nondisplaced fracture of proximal phalanx of right great toe, initial encounter for closed fracture; X58.XXXA Exposure to other specified factors, initial encounter; Y93.9 Activity, unspecified; Y92.9 Unspecified place or not applicable
CPT/HCPCS: 36415; 73630-TC-RT-FY; 73718-TC; 80048; 80053; 81003; 81015; 82009; 82962; 83036; 83540; 83550; 83735; 84100; 84550; 85025; 85027; 85610; 85651; 86140; 87086; 96365; 96372; 96375; 97116-GP; 97161-GP; 99285-25; G0378; J1644; J7030

== ENCOUNTER 2018-05-01 21:28 | Emergency (ER) | payer OTHER ==
--- NOTE | 2018-05-01 21:39 | PDOC ---
Rapid Medical Evaluation Time Seen by Provider: 05/01/18 21:32 Medical Evaluation: Allergies Allergy/AdvReac Type Severity Reaction Status Date / Time No Known Allergies Allergy Verified 08/27/17 15:41 05/01/18 21:32 I performed a brief in-person evaluation of this patient. Chief complaint: Right lower back pain x 2 days Pertinent physical exam findings: No CVA tenderness, no midline vertebral tenderness, normal strength and sensation I have ordered the following: None [id number] will proceed to the ED for further evaluation. Discharge Disposition - Diagnosis Back pain Qualifiers: Back pain location: low back pain Chronicity: acute Back pain laterality: right Sciatica presence: with sciatica Sciatica laterality: sciatica of right side Qualified Code(s): M54.41 - Lumbago with sciatica, right side - Referrals - Patient Instructions - Post Discharge Activity
[2018-05-01 21:40] VITALS: BP 157/72; PULSE 63; TEMP 98.9; BMI 35.5
[2018-05-01] MEDS ORDERED: KETOROLAC TROMETHAMINE 60 MG/2 ML VIAL IM ONE (21:47)
[2018-05-01] MEDS ORDERED: predniSONE 20 MG TABLET (UD) PO ONE (21:47)
--- NOTE | 2018-05-01 21:53 | PDOC ---
History of Present Illness - General Chief Complaint: Back Pain Stated Complaint: RT SIDE PAIN Time Seen by Provider: 05/01/18 21:32 History Source: Patient Exam Limitations: No Limitations - History of Present Illness Initial Comments: Pt is a 57 YO male who states he has right gluteus vega pain after doing exercises. Pt denies injury or trauma. He describes the pain as sharp and nonradiating. 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 Pain is a 9/10. Relieving factors are lying on his side. 05/01/18 21:48 Past History - Travel Traveled outside of the country in the last 30 days: No - Past Medical History Allergies/Adverse Reactions: Allergies Allergy/AdvReac Type Severity Reaction Status Date / Time No Known Allergies Allergy Verified 05/01/18 21:40 Home Medications: Ambulatory Orders Aspirin [ASA -] 81 mg PO DAILY 12/06/15 Chlorthalidone 25 mg PO BID 12/06/15 Lisinopril [Prinivil -] 40 mg PO DAILY 12/06/15 Metformin HCl [Glucophage] 500 mg PO BID 12/06/15 Metoprolol Succinate [Toprol XL -] 50 mg PO DAILY 12/06/15 Nifedipine ER [Procardia XL -] 60 mg PO DAILY 08/27/17 Rosuvastatin Calcium [Crestor] 40 mg PO DAILY 08/27/17 Insulin (Levemir) [Levemir Vial] 50 units SQ BID 08/28/17 Insulin (Novolog) [Novolog -] 10 units SQ AC 08/29/17 Hydrocodone/Acetaminophen [[place] 5-325 Tablet] 1 each PO TID 4 Days #10 tablet MDD 3 tabs 05/01/18 Methylprednisolone [Medrol Dose Riki] 4 mg PO ASDIR #21 tablet 05/01/18 Anemia: No Asthma: No Cancer: No Cardiac Disorders: No CVA: No COPD: No CHF: No Dementia: No Diabetes: Yes GI Disorders: No Disorders: No HTN: Yes Hypercholesterolemia: Yes Liver Disease: No Seizures: No Thyroid Disease: No - Surgical History Abdominal Surgery: No Appendectomy: No Cardiac Surgery: No Cholecystectomy: No Lung Surgery: No Neurologic Surgery: No Orthopedic Surgery: No - Suicide/Smoking/Psychosocial Hx Smoking History: Never smoked Have you smoked in the past 12 months: No Information on smoking cessation initiated: No Hx Alcohol Use: No Drug/Substance Use Hx: No Substance Use Type: None Hx Substance Use Treatment: No Review of Systems - Review of Systems Able to Perform ROS?: Yes Constitutional: No: Chills, Fever All Other Systems: Reviewed and Negative *Physical Exam - Vital Signs Last Vital Signs Temp Pulse Resp BP Pulse Ox 98.9 F 63 16 157/72 100 05/01/18 21:38 05/01/18 21:38 05/01/18 21:38 05/01/18 21:38 05/01/18 21:38 - Physical Exam Comments: Constitutional: VS stated, pt appears in no apparent distress; ambulated to examination room, steady gait noted. Skin: Warm and dry. Intact, no lesions or excoriations. Head: Normocephalic; atraumatic Eyes: conjunctiva pink without injection or discharge. Throat: Oropharynx with pink and moist mucosa. Lungs: Bilateral breath sounds clear upon auscultation. No adventitious breath sounds. Heart: Regular rate and rhythm, Musculoskeletal: . Normal curves of cervical, thoracic, and lumbar spine. Full ROM of cervical and lumbar spine. Proximal joints normal; neck, arms, hips, knees, and ankles with full range of active and passive motion. Muscles appear symmetric. Sensation intact medially and laterally. No saddle anesthesia. DTRs+ 2. No tenderness on palpation of spine. 5/5 strength in upper extremities and lower extremity groups. Pt has pain upon palpation to the right gluteus vega. Negative straight leg test. Neurologic: Awake, alert. Conversation fluent. 05/01/18 21:49 Moderate Sedation - Procedure Monitoring Vital Signs: Procedure Monitoring Vital Signs Temperature 98.9 F 05/01/18 21:38 Pulse Rate 63 05/01/18 21:38 Respiratory Rate 16 05/01/18 21:38 Blood Pressure 157/72 05/01/18 21:38 O2 Sat by Pulse Oximetry (%) 100 05/01/18 21:38 Medical Decision Making - Medical Decision Making 05/01/18 21:51 Pt was given Toradal 60 mg IM and Prednisone 60 mg PO *DC/Admit/Observation/Transfer Diagnosis at time of Disposition: Back pain Qualifiers: Back pain location: low back pain Chronicity: acute Back pain laterality: right Sciatica presence: with sciatica Sciatica laterality: sciatica of right side Qualified Code(s): M54.41 - Lumbago with sciatica, right side - Discharge Dispostion Disposition: HOME Condition at time of disposition: Stable Decision to Admit order: No - Prescriptions Prescriptions: Hydrocodone/Acetaminophen [[place] 5-325 Tablet] 1 each PO TID 4 Days #10 tablet MDD 3 tabs Methylprednisolone [Medrol Dose Riki] 4 mg PO ASDIR #21 tablet - Referrals - Patient Instructions Printed Discharge Instructions: DI for Sciatica Additional Instructions: Take Ibuprofen and Medrol dose pack as directed. Use [place] for breakthrough pain. F/U with your PCP - Post Discharge Activity
[2018-05-01] MEDS ORDERED: KETOROLAC TROMETHAMINE 60 MG/2 ML VIAL ONE (21:57)
[2018-05-01] MEDS ORDERED: predniSONE 20 MG TABLET (UD) ONE (21:57)
== END 2018-05-01 22:23 | disposition home or self-care (01) ==
LOC: JERFT 21:28
PROC: 3E0233Z Introduction of Anti-inflammatory into Muscle, Percutaneous Approach (ICD-10-PCS; principal; 2018-05-01)
DX: M54.41 Lumbago with sciatica, right side (principal); I10 Essential (primary) hypertension; E78.00 Pure hypercholesterolemia, unspecified; E11.9 Type 2 diabetes mellitus without complications; Z79.4 Long term (current) use of insulin; Z79.84 Long term (current) use of oral hypoglycemic drugs
CPT/HCPCS: 99281-25

== ENCOUNTER 2022-08-02 22:30 | Emergency (ER) | payer SELFPAY ==
[~2022-08-02 22:30] MED LIST: LIDOCAINE PATCH REMOVAL MC SCH
[2022-08-02 22:35] VITALS: BMI 35.0
[2022-08-02] MEDS ORDERED: KETOROLAC TROMETHAMINE 30 MG/1 ML VIAL IM ONE (22:49)
[2022-08-02] MEDS ORDERED: LIDOCAINE 5% TOPICAL PATCH TP ONE (22:49)
[2022-08-02] MEDS ORDERED: METHOCARBAMOL 500 MG TABLET PO ONE (22:49)
[2022-08-02] MEDS ORDERED: METHOCARBAMOL 500 MG TABLET ONE (22:58)
[2022-08-02] MEDS ORDERED: LIDOCAINE 5% TOPICAL PATCH ONE (22:59)
[2022-08-02] MEDS ORDERED: KETOROLAC TROMETHAMINE 30 MG/1 ML VIAL ONE (22:59)
[2022-08-02 23:15] VITALS: BP 136/75; PULSE 78; RESP 19; TEMP 98.7
== END 2022-08-03 00:25 | disposition home or self-care (01) ==
LOC: JER 22:30
PROC: 3E0233Z Introduction of Anti-inflammatory into Muscle, Percutaneous Approach (ICD-10-PCS; principal; 2022-08-02)
DX: M54.50 Low back pain, unspecified (principal); M25.551 Pain in right hip
CPT/HCPCS: 72100-TC-FY; 72170-TC-FY; 73502-TC-RT-FY; 99285-25

== ENCOUNTER 2022-10-31 21:42 | Emergency (ER) | payer OTHER ==
[2022-10-31 21:47] VITALS: BP 130/70; PULSE 80; RESP 18; TEMP 97.7; BMI 33.0
== END 2022-10-31 23:23 | disposition home or self-care (01) ==
LOC: JER 21:42 → JERFT 21:42 → JER 23:23
DX: Z48.02 Encounter for removal of sutures (principal)
CPT/HCPCS: 99282-25

== ENCOUNTER 2024-10-06 21:37 | Emergency (ER) | payer OTHER ==
[2024-10-06 21:45] VITALS: TEMP 98.1; BMI 30.8
[2024-10-06 22:37] LABS: ABSOLUTE IMMATURE GRANULOCYTES 0.02 x10^3/uL (0.0-0.031); BASOPHILS # 0.04 x10^3/uL (0.01-0.08); EOSINOPHIL % 3.7 % (0.8-7.0); EOSINOPHILS # 0.31 x10^3/uL (0.04-0.54); MCHC 31.3 g/dl (32.3-36.5); MEAN CELL VOLUME 80.1 fl (79.0-92.2); MEAN PLT VOLUME 9.5 fl (9.4-12.4); MONOCYTE # 0.97 x10^3/uL (0.30-0.82); MONOCYTE % 11.5 % (5.3-12.2); RDW 15.6 % (12.2-16.4)
[2024-10-06 23:07] LABS: CO2 24.0 mmol/L (21-32); GLUCOSE,RANDOM 162.0 mg/dL (74-106)
[2024-10-06] MEDS ORDERED: ACETAMINOPHEN INJECTION 100 ML ONE (23:09)
[2024-10-06 23:10] LABS: CREATININE 1.4 mg/dL (0.55-1.3); SGOT/AST 24.0 U/L (15-37); SGPT/ALT 29.0 U/L (13-61)
[2024-10-06 23:11] LABS: TOT PROT 7.8 g/dl (6.4-8.2)
[2024-10-06] MEDS: ACETAMINOPHEN 1000 MG/100 ML BAG IVPB ONE (23:12)
[2024-10-06 23:13] LABS: ALK PHOS 68.0 U/L (45-117)
[2024-10-07 00:23] LABS: HCV DIAGNOSTIC IN-HOUSE W/RFLX NON-REACTIVE (NONREACTIVE)
[2024-10-07 00:26] LABS: HIV INTERPRETATION NEGATIVE (NEGATIVE)
[2024-10-07] MEDS ORDERED: CLINDAMYCIN HCL 150 MG CAPSULE (FP) ONE (00:57)
[2024-10-07] MEDS ORDERED: CLINDAMYCIN HCL 150 MG CAPSULE (FP) PO ONE (01:00)
[2024-10-07] MEDS: CLINDAMYCIN HCL 300 MG CAPSULE PO ONE (01:01)
[2024-10-07 01:13] VITALS: BP 146/82; PULSE 82; RESP 16
== END 2024-10-07 01:12 | disposition home or self-care (01) ==
LOC: JER 21:37 → JERFT 21:37 → JER 10-07 01:12
PROC: 3E033NZ Introduction of Analgesics, Hypnotics, Sedatives into Peripheral Vein, Percutaneous Approach (ICD-10-PCS; principal; 2024-10-06)
DX: M43.6 Torticollis (principal); M54.2 Cervicalgia; M79.89 Other specified soft tissue disorders; R50.9 Fever, unspecified; R22.1 Localized swelling, mass and lump, neck; M54.6 Pain in thoracic spine
CPT/HCPCS: 36415; 72126-TC; 72129-TC; 80053; 85025; 86803; 87389; 99285-25